=== PATIENT | female | born 1935 | race Caucasian/White ===

== ENCOUNTER 2018-05-28 16:35 | Inpatient (IN) | payer MEDICARE, OTHER ==
[2018-05-28 17:19] LABS: ADD MAN DIFF? NO
[2018-05-28 17:25] LABS: BASOPHIL # 0.1 10^3/ul (0.0-0.1); BASOPHILS % 0.5 % (0.0-2.0); EOSINOPHILS # 0.2 10^3/ul (0.0-0.5); EOSINOPHILS % 1.2 % (0.0-7.0); HEMATOCRIT 35.5 % (37.0-47.0); HEMOGLOBIN 11.7 g/dl (12.0-16.0); LYMPHOCYTES % 20.4 % (15.0-51.0); MEAN CORPUSCULAR HEMOGLOBIN 31.6 pg (29.0-33.0); MEAN CORPUSCULAR VOLUME 95.9 fl (82.0-101.0); MEAN PLATELET VOLUME 11.5 fl (7.4-10.4); MONOCYTE # 0.6 10^3/ul (0.3-0.9); MONOCYTES % 3.8 % (0.0-11.0); NEUTROPHIL # 10.7 10^3/ul (1.6-7.5); PLATELET COUNT 210 10^3/UL (140-415)
[2018-05-28 17:25] LABS: WHITE BLOOD COUNT 14.6 10^3/ul (4.8-10.8)
[2018-05-28] MEDS: LABETALOL HCL 20MG INJ IV ×3 (17:33→23:36)
[2018-05-28] MEDS: ONDANSETRON 4 MG INJ IV ×2 (17:33→23:56)
[2018-05-28] MEDS: niCARdipine-NS 0.1MG/ML DRIP 200 ML IV (17:34)
[2018-05-28 17:36] LABS: HEMOGLOBIN A1C 5.4 % (0-5.9)
[2018-05-28 17:39] LABS: INR 0.99; PROTIME 13.2 Sec (11.9-14.9)
[2018-05-28 17:40] LABS: PARTIAL THROMBOPLASTIN TIME 23.4 Sec (23.0-35.0)
[2018-05-28] MEDS: LIDOCAINE 100 MG SYRINGE IV (17:42)
[2018-05-28] MEDS: ETOMIDATE 20 MG INJ IV (17:43)
[2018-05-28] MEDS: SUCCINYLCHOLINE CHLORIDE 100 MG/5 ML SYG IV (17:44)
[2018-05-28 17:45] LABS: ANION GAP 10 (5-13); BLOOD UREA NITROGEN 21 mg/dl (7-20); CALCIUM 10.5 mg/dl (8.4-10.2); CARBON DIOXIDE 29 mmol/L (21-31); CHLORIDE 102 mmol/L (97-110); CHOL/HDL RATIO 5.3 RATIO; CHOLESTEROL 203 mg/dl (100-200); CREATINE KINASE 131 IU/L (23-200); CREATININE 0.72 mg/dl (0.44-1.00); ETHANOL < 10.0 mg/dl (0-0); GLUCOSE 175 mg/dl (70-220); HDL CHOLESTEROL 38 mg/dl (33-92); LDL CHOLESTEROL,CALCULATED 120 mg/dl; POTASSIUM 4.4 mmol/L (3.5-5.1); SODIUM 141 mmol/L (135-144); TRIGLYCERIDES 225 mg/dl (0-149)
[2018-05-28 17:56] LABS: CK INDEX 1.1; CK-MB 1.42 ng/ml (0.0-2.4); TROPONIN-I < 0.012 ng/ml (0.000-0.120)
[2018-05-28 18:06] LABS: ADD UMIC YES; UR AMORPHOUS CRYSTAL FEW /HPF (NONE SEEN); UR ASCORBIC ACID 20 mg/dL (NEGATIVE); UR BILIRUBIN (Dip) NEGATIVE (NEGATIVE); UR BLOOD (Dip) NEGATIVE (NEGATIVE); UR CLARITY CLOUDY (CLEAR); UR COLOR YELLOW (YELLOW); UR GLUCOSE (Dip) 1+ mg/dL (NEGATIVE); UR KETONES (Dip) 1+ mg/dL (NEGATIVE); UR LEUKOCYTE ESTERASE (Dip) NEGATIVE Leu/ul (NEGATIVE); UR NITRITE (Dip) NEGATIVE (NEGATIVE); UR RBC 2 /HPF (0-5); UR SPECIFIC GRAVITY (Dip) 1.013 (1.003-1.030); UR TOTAL PROTEIN (Dip) 1+ mg/dl (NEGATIVE); UR UROBILINOGEN (Dip) NEGATIVE (NEGATIVE); UR WBC 0 /HPF (0-5)
[2018-05-28] MEDS: MANNITOL 20% 250 ML IV (18:07)
[2018-05-28 18:27] LABS: AMPHETAMINE/METHAMPHETAMINE Negative (NEGATIVE); BARBITURATES Negative (NEGATIVE); BENZODIAZEPINES Negative (NEGATIVE); CANNABINOIDS Negative (NEGATIVE); COCAINE Negative (NEGATIVE); OPIATES Negative (NEGATIVE)
[2018-05-28 19:51] LABS: Allen Test ACCEPTAB; Arterial Base Excess 1.1 mmol/L (-3.0-3); Arterial Blood Gas Oxygen Sat 99.4 mmHG (95.0-100.0); Arterial COHb 0.2 % (0.0-3.0); Arterial Fraction of Oxyhgb 98.6 % (93.0-99.0); Arterial HCO3 23.4 mmol/L (22.0-26.0); Arterial MetHb 0.6 % (0.0-1.5); Arterial pCO2 30.4 mmhg (35-45); MODE VENT - AC; Site Right Radial
[2018-05-28] MEDS: AMLODIPINE 5 MG TAB PO (23:21)
[2018-05-29] MEDS ORDERED: ALBUTEROL/IPRATROPIUM (NEB) 3 ML AMP HHN
[2018-05-29] MEDS: IPRATROPIUM (HFA) 12.9 GM INHALER INH ×4 (00:45→23:11)
[2018-05-29] MEDS: ALBUTEROL HFA 8 GM INHALER INH ×4 (00:45→23:11)
[2018-05-29] MEDS: CLONIDINE 0.1 MG/24 HR PATCH TRANSDERM (00:59)
[2018-05-29] MEDS: LABETALOL HCL 20MG INJ IV ×2 (02:04→03:16)
[2018-05-29 04:45] LABS: ADD MAN DIFF? NO
[2018-05-29 04:49] LABS: WHITE BLOOD COUNT 19.3 10^3/ul (4.8-10.8)
[2018-05-29 04:49] LABS: ABNORMAL IP MESSAGE 1; BASOPHIL # 0.1 10^3/ul (0.0-0.1); BASOPHILS % 0.3 % (0.0-2.0); EOSINOPHILS % 0.1 % (0.0-7.0); HEMATOCRIT 35.7 % (37.0-47.0); LYMPHOCYTES % 15.7 % (15.0-51.0); MEAN CORPUSCULAR HEMOGLOBIN 31.9 pg (29.0-33.0); MEAN CORPUSCULAR HGB CONC 33.6 g/dl (32.0-37.0); MEAN CORPUSCULAR VOLUME 94.9 fl (82.0-101.0); MEAN PLATELET VOLUME 11.6 fl (7.4-10.4); MONOCYTE # 1.9 10^3/ul (0.3-0.9); MONOCYTES % 9.6 % (0.0-11.0); NEUTROPHIL # 14.2 10^3/ul (1.6-7.5); NEUTROPHILS % 73.6 % (39.0-77.0); PLATELET COUNT 185 10^3/UL (140-415); RED BLOOD COUNT 3.76 10^6/ul (4.20-5.40); RED CELL DISTRIBUTION WIDTH 12.8 % (11.5-14.5)
[2018-05-29 04:55] LABS: POSITIVE DIFF @See below
[2018-05-29 05:19] LABS: ALANINE AMINOTRANSFERASE 10 IU/L (13-69); ALBUMIN 4.4 g/dl (3.3-4.9); ALBUMIN/GLOBULIN RATIO 1.12; ALKALINE PHOSPHATASE 73 IU/L (42-121); ANION GAP 20 (5-13); ASPARTATE AMINO TRANSFERASE 37 IU/L (15-46); BILIRUBIN,INDIRECT 0.6 mg/dl (0-1.1); BILIRUBIN,TOTAL 0.6 mg/dl (0.2-1.3); BLOOD UREA NITROGEN 19 mg/dl (7-20); CALCIUM 10.7 mg/dl (8.4-10.2); CARBON DIOXIDE 25 mmol/L (21-31); CHLORIDE 100 mmol/L (97-110); CREATININE 0.97 mg/dl (0.44-1.00); GLUCOSE 159 mg/dl (70-220); POTASSIUM 3.6 mmol/L (3.5-5.1); SODIUM 145 mmol/L (135-144); TOTAL PROTEIN 8.3 g/dl (6.1-8.1)
[2018-05-29] MEDS: PANTOPRAZOLE (EC) 40 MG TAB PO (06:00)
[2018-05-29] MEDS: ONDANSETRON 4 MG INJ IV (06:30)
[2018-05-29] MEDS: DEXTROSE 5%-0.45% NACL 1,000 ML IV (09:00)
[2018-05-29] MEDS: AMLODIPINE 5 MG TAB PO ×2 (09:01→20:37)
[2018-05-29] MEDS: ACETAMINOPHEN 650 MG SUPP PR ×2 (09:18→15:36)
[2018-05-29] MEDS ORDERED: GLUCOSE GEL 15 GRAM TUBE BUCCAL (09:30)
[2018-05-29] MEDS ORDERED: DEXTROSE 50% 50 ML SYRINGE IV ×2 (09:30)
[2018-05-29] MEDS ORDERED: GLUCAGON 1 MG INJ IM (09:30)
[2018-05-29] MEDS ORDERED: GLUCOSE GEL 15 GRAM TUBE PO ×2 (09:30)
[2018-05-29] MEDS: CEFTRIAXONE 1 GM/50 ML (PMX) 50 ML IVPB (10:13)
[2018-05-29 10:50] LABS: ADD UMIC YES; UR ASCORBIC ACID NEGATIVE (NEGATIVE); UR BILIRUBIN (Dip) NEGATIVE (NEGATIVE); UR BLOOD (Dip) 1+ mg/dL (NEGATIVE); UR CLARITY SLIGHTLY CLOUDY (CLEAR); UR COLOR YELLOW (YELLOW); UR GLUCOSE (Dip) NEGATIVE (NEGATIVE); UR KETONES (Dip) NEGATIVE (NEGATIVE); UR LEUKOCYTE ESTERASE (Dip) NEGATIVE Leu/ul (NEGATIVE); UR NITRITE (Dip) POSITIVE (NEGATIVE); UR RBC 33 /HPF (0-5); UR SPECIFIC GRAVITY (Dip) 1.026 (1.003-1.030); UR TOTAL PROTEIN (Dip) 2+ mg/dl (NEGATIVE); UR UROBILINOGEN (Dip) NEGATIVE (NEGATIVE); UR WBC 9 /HPF (0-5)
[2018-05-29] MEDS ORDERED: INSULIN ASPART [NOVOLOG] 3 ML PEN SC (12:00)
[2018-05-29] MEDS: Insulin NOVOLOG SS MILD Algorithm (NPO/TPN/ENTERAL FEEDS) SC ×2 (13:11→18:31)
[2018-05-29] MEDS: LORAZEPAM 2 MG INJ IV (19:29)
[2018-05-29 19:57] LABS: LACTIC ACID 4.2 mmol/L (0.5-2.0)
[2018-05-29] MEDS: LEVETIRACETAM 500 MG (PMX) 100 ML IVPB (20:38)
[2018-05-29 21:39] LABS: LACTIC ACID 3.5 mmol/L (0.5-2.0)
[2018-05-30] MEDS: LABETALOL HCL 20MG INJ IV (00:29)
[2018-05-30 00:58] LABS: LACTIC ACID 3.1 mmol/L (0.5-2.0)
[2018-05-30 04:55] LABS: ADD MAN DIFF? NO
[2018-05-30 04:56] LABS: WHITE BLOOD COUNT 18.4 10^3/ul (4.8-10.8)
[2018-05-30 04:56] LABS: BASOPHIL # 0.1 10^3/ul (0.0-0.1); BASOPHILS % 0.4 % (0.0-2.0); EOSINOPHILS % 0.1 % (0.0-7.0); HEMATOCRIT 30.6 % (37.0-47.0); HEMOGLOBIN 10.4 g/dl (12.0-16.0); LYMPHOCYTES # 2.5 10^3/ul (0.8-2.9); LYMPHOCYTES % 13.7 % (15.0-51.0); MEAN CORPUSCULAR HEMOGLOBIN 32.3 pg (29.0-33.0); MEAN PLATELET VOLUME 11.8 fl (7.4-10.4); MONOCYTE # 1.4 10^3/ul (0.3-0.9); MONOCYTES % 7.3 % (0.0-11.0); NEUTROPHIL # 14.2 10^3/ul (1.6-7.5); NEUTROPHILS % 77.5 % (39.0-77.0); PLATELET COUNT 165 10^3/UL (140-415); RED BLOOD COUNT 3.22 10^6/ul (4.20-5.40); RED CELL DISTRIBUTION WIDTH 13.1 % (11.5-14.5)
[2018-05-30 05:23] LABS: ANION GAP 13 (5-13); BLOOD UREA NITROGEN 25 mg/dl (7-20); CALCIUM 9.7 mg/dl (8.4-10.2); CARBON DIOXIDE 24 mmol/L (21-31); CHLORIDE 105 mmol/L (97-110); CREATININE 1.16 mg/dl (0.44-1.00); GLUCOSE 141 mg/dl (70-220); SODIUM 142 mmol/L (135-144)
[2018-05-30 05:30] LABS: AADO2 Arterial 85.6 mmHg (7.0-24.0); Allen Test ACCEPTAB; Arterial Base Excess 4.1 mmol/L (-3.0-3); Arterial COHb 0.4 % (0.0-3.0); Arterial Fraction of Oxyhgb 97.2 % (93.0-99.0); Arterial MetHb 0.4 % (0.0-1.5); Arterial pCO2 24.2 mmhg (35-45); Blood Gas Low PEEP Setting 0 cmH2O; MODE VENT - AC; Site Right Radial
[2018-05-30 05:47] LABS: POTASSIUM 2.8 mmol/L (3.5-5.1)
[2018-05-30] MEDS: Insulin NOVOLOG SS MILD Algorithm (NPO/TPN/ENTERAL FEEDS) SC ×5 (06:00→23:39)
[2018-05-30] MEDS: PANTOPRAZOLE (EC) 40 MG TAB PO (06:28)
[2018-05-30] MEDS: DEXTROSE 5%-0.45% NACL 1,000 ML IV (06:28)
[2018-05-30] MEDS: IPRATROPIUM (HFA) 12.9 GM INHALER INH ×2 (07:30→15:32)
[2018-05-30] MEDS: ALBUTEROL HFA 8 GM INHALER INH ×2 (07:30→15:32)
[2018-05-30] MEDS: POTASSIUM CHLORIDE 20 MEQ POWDER FOR ORAL SOLN GTB ×3 (08:10→17:54)
[2018-05-30] MEDS: AMLODIPINE 5 MG TAB PO ×2 (08:11→20:04)
[2018-05-30] MEDS: ACETAMINOPHEN 650 MG SUPP PR (08:11)
[2018-05-30] MEDS: LEVETIRACETAM 500 MG (PMX) 100 ML IVPB ×2 (08:12→20:04)
[2018-05-30] MEDS: CEFTRIAXONE 1 GM/50 ML (PMX) 50 ML IVPB (10:17)
[2018-05-30] MEDS: D5W-0.45 NACL + KCL 20 MEQ 1,000 ML IV (17:59)
[2018-05-31] MEDS: LABETALOL HCL 20MG INJ IV (01:22)
[2018-05-31] MEDS: Insulin NOVOLOG SS MILD Algorithm (NPO/TPN/ENTERAL FEEDS) SC (05:51)
[2018-05-31] MEDS: PANTOPRAZOLE (EC) 40 MG TAB PO (05:51)
[2018-05-31] MEDS: LEVETIRACETAM 500 MG (PMX) 100 ML IVPB (08:00)
[2018-05-31] MEDS: AMLODIPINE 5 MG TAB PO (08:03)
[2018-05-31] MEDS: IPRATROPIUM (HFA) 12.9 GM INHALER INH ×2 (08:42)
[2018-05-31] MEDS: ALBUTEROL HFA 8 GM INHALER INH ×2 (08:42)
[2018-05-31] MEDS ORDERED: PIPER-TAZO 3.375 GM IV (PMX) 100 ML IVPB (10:30)
[2018-05-31] MEDS ORDERED: LORAZEPAM 2 MG INJ IV (12:30)
[2018-05-31] MEDS: morphine (DRIP) 100 MG/100 ML 100 ML IV (13:37)
[2018-05-31] MEDS: morphine 10 MG INJ IV (14:30)
[2018-05-31] MEDS: LORAZEPAM 2 MG INJ IV (14:37)
[2018-05-31] MEDS: SCOPOLAMINE 1.5 MG PATCH TRANSDERM (15:01)
[2018-05-31] MEDS: ATROPINE 1% 5 ML OPH SL (15:02)
[2018-06-01] MEDS: ATROPINE 1% 5 ML OPH SL (12:51)
[2018-06-01] MEDS: morphine (DRIP) 100 MG/100 ML 100 ML IV (13:01)
[2018-06-03 13:23] LABS: PROCALCITONIN 0.78 ng/mL (<0.10)
== END 2018-06-01 20:50 | disposition expired | DRG 64 ==
LOC: E/R 16:35 → MS1 05-31 18:11 → ICU 18:48
PROC: 0BH17EZ Insertion of Endotracheal Airway into Trachea, Via Natural or Artificial Opening (ICD-10-PCS; principal; 2018-05-28)
PROC: 5A1945Z Respiratory Ventilation, 24-96 Consecutive Hours (ICD-10-PCS; 2018-05-28)
DX: I61.2 Nontraumatic intracerebral hemorrhage in hemisphere, unspecified (principal); G93.5 Compression of brain; J96.01 Acute respiratory failure with hypoxia; A41.9 Sepsis, unspecified organism; J69.0 Pneumonitis due to inhalation of food and vomit; G93.49 Other encephalopathy; I16.9 Hypertensive crisis, unspecified; N17.9 Acute kidney failure, unspecified; N39.0 Urinary tract infection, site not specified; B96.20 Unspecified Escherichia coli [E. coli] as the cause of diseases classified elsewhere; I61.1 Nontraumatic intracerebral hemorrhage in hemisphere, cortical; I62.01 Nontraumatic acute subdural hemorrhage; I61.5 Nontraumatic intracerebral hemorrhage, intraventricular; R40.20 Unspecified coma; R29.739 NIHSS score 39; Z51.5 Encounter for palliative care; D63.8 Anemia in other chronic diseases classified elsewhere; D50.9 Iron deficiency anemia, unspecified; E11.9 Type 2 diabetes mellitus without complications; E78.5 Hyperlipidemia, unspecified; E87.6 Hypokalemia; G40.909 Epilepsy, unspecified, not intractable, without status epilepticus; I25.10 Atherosclerotic heart disease of native coronary artery without angina pectoris; I11.0 Hypertensive heart disease with heart failure; I50.9 Heart failure, unspecified; J45.909 Unspecified asthma, uncomplicated; K21.9 Gastro-esophageal reflux disease without esophagitis; M81.0 Age-related osteoporosis without current pathological fracture; M19.90 Unspecified osteoarthritis, unspecified site; R32 Unspecified urinary incontinence; Z87.440 Personal history of urinary (tract) infections; Z91.81 History of falling
CPT/HCPCS: 31500; 36415; 36600; 70450; 71045; 80048; 80053; 80061; 80307; 81001; 82550; 82553; 82803; 82962; 83036; 83605; 84145; 84443; 84484; 85025; 85610; 85730; 87040; 87070; 87081; 87086; 89220; 93005; 94002; 94003; 94640; 94770; 95819; 96365; 96375; 99291-25